=== PATIENT | male | born 1990 | race Caucasian/White ===

== ENCOUNTER 2017-05-01 20:29 | Emergency (ER) | payer BC ==
[2017-05-01] MEDS ORDERED: Thiamine 100 mg/mL 2mL Vial IM STA (21:15)
[2017-05-01 21:18] LABS: % BASOPHILS 0.3 % (0.0-2.0); % EOSINOPHILS 3.3 % (0.0-5.0); % LYMPHOCYTES 24.1 % (20.0-50.0); % MONOCYTES 7.6 % (2.0-10.0); % NEUTROPHILS 64.7 % (40.0-80.0); HEMATOCRIT 47.3 % (41.0-60); HEMOGLOBIN 16.3 gm/dL (12-16); MEAN CELL VOLUME 86.9 fl (80-99); MEAN CORPUSCULAR HEMOGLOBIN 29.9 pg (26.0-30.0); MEAN CORPUSCULAR HGB CONC 34.4 pg (28.0-36.0); MEAN PLATELET VOLUME 9.5 fl; NEUTROPHILE ABSOLUTE 6.7 Th/cmm (1.8-8.0); PLATELET COUNT 199 Th/cmm (150-400); RED BLOOD COUNT 5.44 Mil/cmm (4.30-5.70); RED CELL DISTRIBUTION WIDTH 12.5 % (11.5-20.0); WHITE BLOOD COUNT 10.3 Th/cmm (4.8-10.8)
[2017-05-01] MEDS ORDERED: D5-0.45NS 1,000 ML IV ONE (21:21)
[2017-05-01 21:31] LABS: INR 0.9 (0.5-1.4); PROTHROMBIN TIME (TEST) 9.3 SECONDS (9.5-11.5)
[2017-05-01 21:34] LABS: ANION GAP 12.8 (7.0-16.0); BUN - UREA NITROGEN 8 mg/dL (7-25); BUN/CREATININE RATIO 8.9; CALCIUM SERUM 8.7 mg/dL (8.6-10.3); CARBON DIOXIDE 23.4 mEq/L (21.0-31.0); CHLORIDE 101 mEq/L (98-107); CREATININE - SERUM 0.9 mg/dL (0.7-1.3); GLUCOSE 107 mg/dL (70-105); MAGNESIUM 2.4 mg/dL (1.9-2.7); POTASSIUM SERUM 3.2 mEq/L (3.5-5.1); SODIUM SERUM 134 mEq/L (136-145)
[2017-05-01 21:35] LABS: ALB/GLOB RATIO 1.7 (1.0-1.8); BILIRUBIN,DIRECT 0.07 mg/dL (0.0-0.2); BILIRUBIN,TOTAL 0.4 mg/dL (0.3-1.0)
[2017-05-01] MEDS ORDERED: Thiamine 100 mg/mL 2mL Vial ONE (21:40)
--- NOTE | 2017-05-01 23:28 | ER Physician Documentation ---
DATE OF SERVICE: 05/01/2017 The patient was brought into the Emergency Room on 05/01/2017 somewhere around 9 o'clock position. HISTORY OF PRESENT ILLNESS: The patient was brought in by the Paramedics triage. The patient was found unconscious into one of the lawns in his area and was picked up by somebody calling the 911 and paramedics brought him over here. The patient was fully drunk. He was alcoholic and according to the nurses here that he comes here quite frequently, almost 1 month and a half. He shows up with intoxicated status in the hospital. I do not know how much the patient has taken. The patient does not give any history. According to the history from the paramedics, the patient was found to be drunk. He was abusive. He was combative, so he was restrained. The patient does not talk and he does drink alcohol. The rest of the history is not available at the present moment. He does not have any significant medical illness. Once we have more medical diagnosis, which will be written in the orders. Upon physical exam, review of systems, etc., again, the patient is unremarkable. ALLERGIES: No known allergies. The patient does not have any pain. The patient drinks alcohol. Other history is not available. PHYSICAL EXAMINATION: VITAL SIGNS: Weight is not taken, but it looks like somewhere close to 210 pounds, temperature 97.8, pulse is 86, respiration is 20, blood pressure 118/68, and oxygen saturation is 94%. GENERAL: The patient appears to be chubby. On physical examination, the patient appears to be drunk. The patient smells of alcohol. He is restrained. He was moved to bed number 4. The patient does not have any tremors, does not have any DTs. He is not combative at the present moment. He said, "leave me alone." That is all he said, otherwise on general examination ____, other than being obese, alcoholic, and agitated, but not combative. He is seen no edema, no cyanosis, no petechia. No ecchymosis. Urination incontinence is seen. HEENT: Eyes are normal. Ear, nose, and throat appear to be normal. No meningeal signs. CHEST: Clear. NECK: Trachea is central. LUNGS: Fairly good air entry in both lungs. No rales, no rhonchi. No bronchial breathing. HEART: Reveals normal heart sounds. Soft fourth heart sound. Second heart sound is physiologically split. Third heart sound is absent. ABDOMEN: Soft, benign and obese, otherwise negative. No surgical scar is seen. CLINICAL IMPRESSION: The patient was found unconscious in one of the lawns after heavy alcohol ingestion. Alcohol levels, hepatitis panel, labs etc. have been ordered. Magnesium level has been ordered. Thiamin has been given to the patient. IV fluids have been given. Labs have been ordered. Other diagnosis is mild obesity. Frequently coming to the Emergency Room. Once he wakes up, probably we might give him some advice more that not to drink alcohol ____ substances. The other diagnosis is obesity. Height 5 feet 4 inches. No definite allergies. JOB# [id number]
[2017-05-02] MEDS ORDERED: Potassium Chloride 20 mEq ER Tab PO ONE ×2 (00:23→05:06)
--- NOTE | 2017-05-02 02:53 | ER Physician Documentation ---
DATE OF SERVICE: 05/01/2017 ADDENDUM REPORT The first report was dictated. Now, I got all the lab results in which I am going to dictate it out to complete it. Once the patient wakes up, in all probability, the patient will be discharged to home and if the patient does not want to go home, might need to be admitted, then he might be admitted. At the present moment, the plan is to send the patient home. He has been coming back and forth with alcoholic status. Total protein calorie was 7, albumin 4.4, globulin 2.6, bilirubin is 0.4 total and direct bilirubin is 0.07, which is within normal limits. SGOT ____. AST is 76, which is slightly elevated, similarly SGPT is slightly elevated, suggesting the patient has a mild alcoholic hepatitis. Alkaline phosphatase is normal, which is 66. The patient's electrolytes shows sodium to be 134, potassium 3.2. We will give him some potassium once he wakes up or might give him IV into the drip, chloride is 101, CO2 is 23.4, glucose 107, BUN is 8, creatinine is 0.9. Please note that the patient was given IV thiamine 100 mg. White count is 10.3, hemoglobin 16.3, hematocrit of 47.3, MCV is 86.9, MCH is ____, MCHC is 34.7, platelet count is 199. BUN and creatinine ratio is 8.9, calcium is 8.7. Magnesium is 2.4. All these are normal except for slightly alcoholic hepatitis findings. CRP is 0.3 within normal limits. Protime is also within normal at 9.3. An ethanol alcohol level was elevated to be 319 at the time when he came to the hospital. This was around 2155. Now it is already ____. Thank you again, this is Dr. Buckley. The plan is to discharge the patient once he wakes up, give him some food and then transfer him and sent him back home. Dr. Buckley dictating this report again as an addendum report. Initial report comes when I see the patient and then afterwards when I get all the lab reports that is also being dictated in order to avoid delay in care and dictations, so that the ER can move faster in time. JOB# [id number]
== END 2017-05-02 05:23 | disposition home or self-care (01) ==
LOC: EDBD 20:29 → ER 20:29
DX: F10.129 Alcohol abuse with intoxication, unspecified (principal); E66.9 Obesity, unspecified
CPT/HCPCS: 99285; 96360; 96361; 96372; 36415; 86141; 85025; 85610; 80320; 83735; 80076; 80048; J3411